=== PATIENT | female | born 1955 | race Caucasian/White ===

== ENCOUNTER 2018-02-21 19:30 | Emergency (ER) | payer SELFPAY ==
[~2018-02-21] VITALS: Ht 154.9 cm; Wt 75.0 kg
[2018-02-21 19:34] VITALS: BP 155/89; PULSE 70; RESP 19; Ht 154.9 cm; Wt 75.0 kg
[2018-02-22] MEDS ORDERED: NAPR-985 PO (14:17)
== END 2018-02-21 21:33 | disposition left against medical advice (07) ==
LOC: FTE 19:30
DX: Z53.21 Procedure and treatment not carried out due to patient leaving prior to being seen by health care provider (principal)

== ENCOUNTER 2018-02-22 13:16 | Emergency (ER) | payer BC ==
[~2018-02-22] VITALS: Ht 165.1 cm; Wt 79.0 kg
[2018-02-22 13:32] VITALS: BP 170/90; PULSE 76; RESP 16; Ht 165.1 cm; Wt 79.0 kg
[2018-02-22] MEDS ORDERED: NAPR-985 PO (14:17)
--- NOTE | 2018-02-22 14:57 | ERD ---
ER Documentation Chief Complaint Chief Complaint left ankle pain from trip & fall yesterday HPI 62-year-old female presenting with left ankle pain after trip and fall yesterday. Patient has pain with ambulation. Has not taken medications for symptoms. Denies any medical problems. NKDA. Surgical history denies. Social history denies ROS All systems reviewed and are negative except as per history of present illness. Medications Home Meds Active Scripts Naproxen* (Naprosyn*) 500 Mg Tablet, 500 MG PO BID PRN for PAIN AND/OR INFLAMMATION, #30 TAB Prov:JOVANA BAI PA-C 02/22/18 PMhx/Soc Medical and Surgical Hx: pt denies Medical Hx, pt denies Surgical Hx FmHx Family History: No diabetes, No coronary disease, No other Physical Exam Vitals Vital Signs Date Temp Pulse Resp B/P (MAP) Pulse Ox O2 O2 Flow FiO2 Time Delivery Rate 02/22/18 99.1 76 16 170/90 98 13:32 (116) Physical Exam GENERAL: The patient is well-appearing, well-nourished, in no acute distress CHEST: Clear to auscultation bilaterally. There are no rales, wheezes or rhonchi. HEART: Regular rate and rhythm. No murmurs, clicks, rubs or gallops. No S3 or S4. EXTREMITIES: Tender palpation over left ankle with no obvious deformity or swelling. Normal range of motion with flexion and extension. Strength 5 out of 5. NEUROLOGIC: Alert and oriented. Cranial nerves II through XII intact. Motor strength in all 4 extremities with 5 out of 5 strength. Sensation grossly intact. SKIN: There is no apparent rash or petechiae. The skin is warm and dry. Procedures/MDM DIAGNOSTIC IMAGING REPORT Patient: HANG PALMER : 1955 Age: 62 Sex: F MR #: [id number] DOS: 02/22/18 1350 Ordering MD: FRANCISCO BAI PA-C Location: [facility] Room/Bed: PROCEDURE: XR Left Ankle CLINICAL INDICATION: Ankle pain TECHNIQUE: Standard 3 view radiographs were submitted. COMPARISON: None FINDINGS: Osseous structures: Well mineralized and intact with no fracture or destructive process identified. Joint spaces: Well maintained with no significant erosions or spurring evident. Soft tissues: Appear unremarkable. IMPRESSION: Unremarkable left ankle. ER course: Jorge wrap given ED. MDM: 62-year-old female presenting with ankle pain. I have low suspicion for acute fracture dislocation. I have low suspicion for tendon or ligament rupture. I have low suspicion for neuro deficit. Patient is discharged with supportive medications and told to follow-up with primary care within 1-2 days for close evaluation. All questions answered at this Departure Diagnosis: Primary Impression: Ankle pain Condition: Stable Patient Instructions: Sprain, Ankle, With X-Ray Referrals: [facility] YOU HAVE RECEIVED A MEDICAL SCREENING EXAM AND THE RESULTS INDICATE THAT YOU DO NOT HAVE A CONDITION THAT REQUIRES URGENT TREATMENT IN THE EMERGENCY DEPARTMENT. FURTHER EVALUATION AND TREATMENT OF YOUR CONDITION CAN WAIT UNTIL YOU ARE SEEN IN YOUR DOCTORS OFFICE WITHIN THE NEXT 1-2 DAYS. IT IS YOUR RESPONSIBILITY TO MAKE AN APPOINTMENT FOR FOLOW-UP CARE. IF YOU HAVE A PRIMARY DOCTOR --you should call your primary doctor and schedule an appointment IF YOU DO NOT HAVE A PRIMARY DOCTOR YOU CAN CALL OUR PHYSICIAN REFERRAL HOTLINE AT IF YOU CAN NOT AFFORD TO SEE A PHYSICIAN YOU CAN CHOSE FROM THE FOLLOWING [facility] [address] [facility]. [facility] [address] [facility] [address] [facility] [address] [facility] [facility] [address] [facility]. [facility] [address] [facility]. [facility]. [address] Additional Instructions: FOLLOW UP WITH YOUR PRIMARY CARE PHYSICIAN TOMORROW.Return to this facility if you are not improving as expected. JOVANA BAI PA-C Feb 22, 2018 14:57
== END 2018-02-22 14:50 | disposition home or self-care (01) ==
LOC: FTE 13:16
DX: M25.572 Pain in left ankle and joints of left foot (principal)
CPT/HCPCS: 73610; Z7502